=== PATIENT | male | born 1975 | race American Indian/Alaskan Native ===

== ENCOUNTER 2016-08-30 18:32 | Emergency (ER) | payer SELFPAY ==
[2016-08-30 18:54] VITALS: BP 152/104
[2016-08-30 19:15] LABS: Basophils % (Auto) 1.3 % (0.0-1.8); Eosinophils % (Auto) 2.4 % (0.0-4.3); Hematocrit 46.1 % (35.5-45.6); Hemoglobin 16.2 gm/dl (11.8-15.2); Mean Corpuscular HGB Conc 35 % (32-34); Mean Corpuscular Hemoglobin 35 pg (28-32); Mean Corpuscular Volume 100 fl (84-94); Platelet Count 195 K/mm3 (140-440); Red Blood Count 4.62 M/mm3 (3.65-5.03); Red Cell Distribution Width 14.1 % (13.2-15.2); White Blood Count 5.5 K/mm3 (4.5-11.0)
[2016-08-30 19:32] LABS: Anion Gap 19 mmol/L; Blood Urea Nitrogen 15 mg/dL (9-20); Calcium 8.6 mg/dL (8.4-10.2); Carbon Dioxide 23 mmol/L (22-30); Chloride 100.3 mmol/L (98-107); Glucose 132 mg/dL (75-100); Potassium 3.2 mmol/L (3.6-5.0); Sodium 139 mmol/L (137-145)
[2016-08-30 19:41] LABS: Urine Drugs of Abuse Note Disclamer
[2016-08-30] MEDS ORDERED: K-DUR PO ONE (20:16)
--- NOTE | 2016-09-01 15:23 | ED Elopement Review ---
ED Pt Elopement review - Results review Lab results: Laboratory Tests 08/30/16 08/30/16 08/30/16 18:52 18:57 18:57 WBC 5.5 RBC 4.62 Hgb 16.2 H Hct 46.1 H MCV 100 H MCH 35 H MCHC 35 H RDW 14.1 Plt Count 195 Lymph % (Auto) 42.6 H Barnes % (Auto) 7.6 H Eos % (Auto) 2.4 Baso % (Auto) 1.3 Lymph # 2.3 Barnes # 0.4 Eos # 0.1 Baso # 0.1 Seg Neutrophils % 46.1 Seg Neutrophils # 2.5 Sodium 139 Potassium 3.2 L Chloride 100.3 Carbon Dioxide 23 Anion Gap 19 BUN 15 Creatinine 1.2 Estimated GFR > 60 BUN/Creatinine Ratio 12.50 Glucose 132 H Calcium 8.6 Magnesium 2.00 Troponin T < 0.010 Urine Opiates Screen Urine Methadone Screen Ur Barbiturates Screen Ur Phencyclidine Scrn Ur Amphetamines Screen U Benzodiazepines Scrn Urine Cocaine Screen U Marijuana (THC) Screen Drugs of Abuse Note Plasma/Serum Alcohol 08/30/16 08/30/16 19:07 19:30 WBC RBC Hgb Hct MCV MCH MCHC RDW Plt Count Lymph % (Auto) Barnes % (Auto) Eos % (Auto) Baso % (Auto) Lymph # Barnes # Eos # Baso # Seg Neutrophils % Seg Neutrophils # Sodium Potassium Chloride Carbon Dioxide Anion Gap BUN Creatinine Estimated GFR BUN/Creatinine Ratio Glucose Calcium Magnesium Troponin T Urine Opiates Screen Presumptive negative Urine Methadone Screen Presumptive negative Ur Barbiturates Screen Presumptive negative Ur Phencyclidine Scrn Presumptive negative Ur Amphetamines Screen Presumptive negative U Benzodiazepines Scrn Presumptive negative Urine Cocaine Screen Presumptive negative U Marijuana (THC) Screen Presumptive positive Drugs of Abuse Note Disclamer Plasma/Serum Alcohol < 0.01 - Call Back decision Pt Call Back Decision: No action required
== END 2016-08-30 20:21 | disposition left against medical advice (07) ==
LOC: ED 18:32
DX: R07.89 Other chest pain (principal); R06.02 Shortness of breath; F17.200 Nicotine dependence, unspecified, uncomplicated; F12.90 Cannabis use, unspecified, uncomplicated; Z53.21 Procedure and treatment not carried out due to patient leaving prior to being seen by health care provider
CPT/HCPCS: 36415; 80048; 80307; 83735; 84484; 85025; 93005; 93010; G0480; 80320